=== PATIENT | female | born 1950 ===

== ENCOUNTER 2018-10-19 14:23 | Outpatient (CLI) | payer OTHER | END 2018-10-19 14:24 | disposition home or self-care (01) | LOC: C.DEXAIC 14:23 | DX: Z13.820 Encounter for screening for osteoporosis (principal) ==

== ENCOUNTER 2018-12-20 05:48 | Day surgery (SDC) | payer OTHER ==
[2018-12-20] MEDS ORDERED: Phenylephrine 2.5% Opht Soln OD SCH (06:00)
[2018-12-20] MEDS ORDERED: Lactated Ringer's 500 ML IV ONE ×2 (06:00→06:50)
[2018-12-20] MEDS ORDERED: Tropicamide 1% Opht SOLUTION OD SCH (06:00)
[2018-12-20 07:10] VITALS: BMI 34.0
[2018-12-20] MEDS ORDERED: Povidone Iodine Ophthalmic 5% Soln ONE (07:10)
[2018-12-20] MEDS ORDERED: Carbachol 0.01% IO ONE (07:11)
[2018-12-20] MEDS ORDERED: Chondroitin/Hyaluronate Opth Syringe KIT (0.55 ml-0.5 ml) IO ONE (07:11)
[2018-12-20] MEDS ORDERED: Tobramycin/Dexamethasone OPHT OINT ONE (07:11)
[2018-12-20] MEDS ORDERED: Hyaluronidase Human, Recombi 150 U/ML VIAL ONE (07:12)
[2018-12-20] MEDS ORDERED: Lidocaine 2% MPF (5 ml) Inj ONE (07:12)
[2018-12-20] MEDS ORDERED: Midazolam 2 MG/2 ML VIAL ONE (07:45)
[2018-12-20 08:33] VITALS: TEMP 97.7
[2018-12-20 09:06] VITALS: BP 116/63; PULSE 59; RESP 19; O2SAT 98
--- NOTE | 2018-12-20 14:43 | OP ---
PROCEDURE DATE: 12/20/2018 PREOPERATIVE DIAGNOSIS: Mature nuclear cataract, right eye. POSTOPERATIVE DIAGNOSIS: Mature nuclear cataract, right eye. OPERATIVE PROCEDURE: Cataract extraction with lens implant, right eye. ATTENDING SURGEON: Jeremías Pizarro MD ANESTHESIA: Retrobulbar block. COMPLICATIONS: None. ESTIMATED BLOOD LOSS: Zero. PROCEDURE: The patient was brought to the operating room and properly identified. Anesthesia staff administered intravenous sedation and retrobulbar block was given to the surgical eye. The patient was then prepped and draped in the usual sterile fashion. Attention was turned to the surgical eye. A lid speculum was placed into interpalpebral fissure. Sitting temporally, two paracentesis incisions were made. The anterior chamber was filled with viscoelastic and a triplanar clear corneal incision was made. Using a cystitome, anterior capsular leaflet was created. Utrata forceps were used to create a continuous curvilinear capsulorrhexis. Balanced salt solution on a cannula was used to hydrodissect and hydrodelineate the lens. The lens was then phacoemulsified with no complications. Automated irrigation and aspiration was used to remove the cortex. Viscoelastic was used to deepen the anterior chamber. The lens was placed in the capsular bag. Automated irrigation and aspiration was used to remove the viscoelastic. The anterior chamber was filled with Miochol. The wounds were hydrated with balanced salt solution. There was noted to be no leak at the end of the case and the lens was well positioned. The lid speculum was removed. The eye was given antibiotics and steroids and covered with a patch and shield. The patient was returned to the recovery room in stable condition. Jeremías Pizarro MD
== END 2018-12-20 09:13 | disposition home or self-care (01) ==
LOC: C.SDS 05:48
PROVIDERS: ATTEND Ophthalmology
DX: H25.11 Age-related nuclear cataract, right eye (principal); E11.9 Type 2 diabetes mellitus without complications; I10 Essential (primary) hypertension; Z79.84 Long term (current) use of oral hypoglycemic drugs
CPT/HCPCS: 66984; 82948; J2250; J3010; J3470; J7120; V2632